=== PATIENT | male | born 2000 | race Caucasian/White ===

== ENCOUNTER 2024-04-26 17:05 | Emergency (ER) | payer OTHER ==
[2024-04-26] MEDS: Acetaminophen 500 MG Tab PO ONE (18:13)
[2024-04-26] MEDS: Ibuprofen 600 MG Tab PO ONE (18:13)
== END 2024-04-26 18:28 | disposition home or self-care (01) ==
LOC: DL.ED 17:05
DX: S92.422A Displaced fracture of distal phalanx of left great toe, initial encounter for closed fracture (principal); W20.8XXA Other cause of strike by thrown, projected or falling object, initial encounter; Y92.89 Other specified places as the place of occurrence of the external cause; Y99.0 Civilian activity done for income or pay
CPT/HCPCS: 73660; 99283; A9270